=== PATIENT | male | born 1970 | race Caucasian/White ===

== ENCOUNTER 2018-07-12 22:10 | Emergency (ER) | payer MEDICAID ==
[~2018-07-12] VITALS: Ht 162.6 cm; Wt 70.3 kg
[~2018-07-12 22:10] MED LIST: GLU5 PO; LIPITOR80 MG PO; LOP600 PO; METFORMIN HYD1000 M1 PO
[2018-07-12 22:33] VITALS: Ht 162.6 cm; Wt 70.3 kg
[2018-07-13 00:12] VITALS: BP 128/76
== END 2018-07-13 00:12 | disposition home or self-care (01) ==
LOC: ED 22:10
DX: K02.9 Dental caries, unspecified (principal); E11.9 Type 2 diabetes mellitus without complications; E78.00 Pure hypercholesterolemia, unspecified
CPT/HCPCS: J1885

== ENCOUNTER 2019-01-28 23:27 | Emergency (ER) | payer MEDICAID ==
[~2019-01-28] VITALS: Ht 154.9 cm; Wt 67.6 kg
[2019-01-28 23:46] VITALS: Ht 154.9 cm; Wt 67.6 kg
[2019-01-29 00:16] VITALS: BP 122/81
== END 2019-01-29 00:16 | disposition home or self-care (01) ==
LOC: ED 23:27
DX: K08.89 Other specified disorders of teeth and supporting structures (principal); E11.9 Type 2 diabetes mellitus without complications; E78.00 Pure hypercholesterolemia, unspecified